=== PATIENT | female | born 1990 | race Caucasian/White ===

== ENCOUNTER 2016-12-01 07:57 | Inpatient (IN) | payer OTHER ==
[2016-12-01] MEDS ORDERED: Buffered Lidocaine 1% SYR 3ML* 3 ML/SYR SYRINGE INTRADERM PRN (08:03)
[2016-12-01] MEDS ORDERED: Oxytocin in LR* 20 UNITS/1,000 ML BAG IVPB SCH ×2 (09:00→19:00)
[2016-12-01 09:11] LABS: Hematocrit 35 % (35-47); Hemoglobin 11.4 g/dl (12.0-16.0); Mean Corpuscular HGB Conc 33 g/dl (31-36); Mean Corpuscular Hemoglobin 27 pg (27-31); Mean Corpuscular Volume 81 fL (80-97); Mean Platelet Volume 8 um3 (7.4-10.4); Red Blood Count 4.26 10^6/ul (4.0-5.4); Red Cell Distribution Width 15 % (10.5-15); White Blood Count 10.2 10^3/ul (3.5-10.8)
[2016-12-01] MEDS ORDERED: OBEPIDURAL* 250 ML ONE (14:51)
[2016-12-01] MEDS ORDERED: Acetaminophen TAB* 325 MG PO ONE (16:25)
[2016-12-01] MEDS ORDERED: Acetaminophen TAB* 325 MG ONE (16:35)
[2016-12-01] MEDS ORDERED: Dibucaine 1% 28.35 GM TUBE PR PRN (18:07)
[2016-12-01] MEDS ORDERED: Glycerin ADULT SUPP PR PRN (18:07)
[2016-12-01] MEDS ORDERED: Measles, Mumps,Rubella VACC* 0.5 ML/VIAL SUBCUT ONE (18:07)
[2016-12-01] MEDS ORDERED: Witch Hazel PAD* JAR TOPICAL PRN (18:07)
[2016-12-01] MEDS ORDERED: oxyCODONE/Acetamin 5/325 MG* TAB PO PRN (18:07)
[2016-12-01] MEDS ORDERED: Misoprostol TAB* 200 MCG PR ONE (18:07)
[2016-12-01] MEDS ORDERED: Acetaminophen TAB* 325 MG PO PRN (18:07)
[2016-12-01] MEDS: Ibuprofen TAB* 600 MG PO PRN (18:23)
[2016-12-01] MEDS ORDERED: Lidocaine 1% MPF* 2 ML VIAL ONE (18:39)
[2016-12-01] MEDS ORDERED: Misoprostol TAB* 200 MCG ONE (18:39)
[2016-12-01] MEDS ORDERED: Simethicone TAB* 80 MG TAB.CHEW PO SCH (21:00)
[2016-12-02 01:10] LABS: Add Diff/Slide Review? Slide Review Added; Comments Flag Yes
[2016-12-02] MEDS: Ibuprofen TAB* 600 MG PO PRN ×4 (01:55→19:56)
[2016-12-02 07:09] LABS: Hematocrit 26 % (35-47); Hemoglobin 8.5 g/dl (12.0-16.0); Mean Corpuscular HGB Conc 32 g/dl (31-36); Mean Corpuscular Hemoglobin 26 pg (27-31); Mean Corpuscular Volume 82 fL (80-97); Mean Platelet Volume 8 um3 (7.4-10.4); Red Blood Count 3.22 10^6/ul (4.0-5.4); Red Cell Distribution Width 15 % (10.5-15); White Blood Count 13.4 10^3/ul (3.5-10.8)
[2016-12-02] MEDS: Docusate CAP* 100 MG PO SCH ×3 (07:59→19:56)
[2016-12-02] MEDS: Ferrous Gluconate TAB* 324 MG TAB PO SCH ×2 (07:59→19:56)
[2016-12-03] MEDS: Ibuprofen TAB* 600 MG PO PRN ×2 (02:23→08:40)
[2016-12-03] MEDS: Ferrous Gluconate TAB* 324 MG TAB PO SCH (08:40)
[2016-12-03] MEDS: Docusate CAP* 100 MG PO SCH (08:40)
[2016-12-03 08:55] VITALS: BP 130/75
== END 2016-12-03 10:50 | disposition home or self-care (01) | DRG 560 ==
LOC: MCHOBOUT 07:57 → MCHOB 08:03
PROVIDERS: ADMIT Midwife; ATTEND Nurse Practitioner
PROC: 10907ZC Drainage of Amniotic Fluid, Therapeutic from Products of Conception, Via Natural or Artificial Opening (ICD-10-PCS; principal; 2016-12-01)
PROC: 10E0XZZ Delivery of Products of Conception, External Approach (ICD-10-PCS; 2016-12-01)
PROC: 4A1HXCZ Monitoring of Products of Conception, Cardiac Rate, External Approach (ICD-10-PCS; 2016-12-01)
PROC: 3E033VJ Introduction of Other Hormone into Peripheral Vein, Percutaneous Approach (ICD-10-PCS; 2016-12-01)
DX: O69.81X0 Labor and delivery complicated by cord around neck, without compression, not applicable or unspecified (principal); O72.1 Other immediate postpartum hemorrhage; Z3A.39 39 weeks gestation of pregnancy; Z37.0 Single live birth; O71.82 Other specified trauma to perineum and vulva; O90.81 Anemia of the puerperium; O75.89 Other specified complications of labor and delivery; R51 Headache
CPT/HCPCS: 36415; 85025; 85027; 86850; 86900; 86901; 90707; A9270-GY

== ENCOUNTER 2019-08-07 20:06 | Emergency (ER) | payer SELFPAY ==
[2019-08-07 20:52] LABS: Urine Appearance Turbid; Urine Bacteria 1+ (Absent); Urine Bilirubin Negative (Negative); Urine Blood 2+ (Negative); Urine Color Yellow; Urine Glucose Negative (Negative); Urine Ketones Trace (Negative); Urine Nitrite Negative (Negative); Urine Protein 3+(>=500 mg/dL) (Negative); Urine Red Blood Cell 3+(>10/hpf) (Absent); Urine Specific Gravity 1.023 (1.010-1.030); Urine Squamous Epithelial Cell Present (Absent); Urine Urobilinogen Negative (Negative); Urine White Blood Cell 3+(>20/hpf) (Absent)
[2019-08-07] MEDS ORDERED: Sulfamethox/Trimethoprim DS 800/160* TAB PO ONE ×2 (20:55→22:53)
--- NOTE | 2019-08-07 21:03 | ED ---
Back Pain - HPI Summary HPI Summary: Patient complains of bilateral flank pain, lower bilateral abdominal pain,, nausea and vomiting 1, pain with urination all starting yesterday. Denies fever, cough, sore throat, CP, SOB, vaginal symptoms. History of kidney stones. Denies other medical history. Abdominal surgical history is none. - History of Current Complaint Chief Complaint: EDFlankPain Stated Complaint: BACK PAIN PER PT Time Seen by Provider: 08/07/19 20:53 Hx Obtained From: Patient Onset/Duration: Lasting Days Onset/Duration: Started Days Ago Timing: Intermittent Back Pain Location: Is Discrete @ Severity Initially: Severe Severity Currently: Severe Pain Intensity: 8 Pain Scale Used: 0-10 Numeric Character: Dull, Aching, Throbbing Aggravating Symptom(s): Movement, Lifting, Bending Alleviating Symptom(s): Rest, Position Associated Signs And Symptoms: Positive: Abdominal Pain, Flank Pain - Allergies/Home Medications Allergies/Adverse Reactions: Allergies Allergy/AdvReac Type Severity Reaction Status Date / Time No Known Allergies Allergy Verified 08/07/19 20:09 PMH/Surg Hx/FS Hx/Imm Hx Endocrine/Hematology History: Denies: Hx Anticoagulant Therapy Cardiovascular History: Denies: Hx Pacemaker/ICD History: Reports: Hx Kidney Stones, Other Problems/Disorders - kindney stones and migraines Musculoskeletal History: Denies: Hx Gout Sensory History: Denies: Hx Eye Prosthesis Opthamlomology History: Denies: Hx Legally Blind Neurological History: Reports: Hx Migraine Psychiatric History: Reports: Hx Depression Infectious Disease History: No Infectious Disease History: Denies: Traveled Outside the [place] in Last 30 Days - Family History Known Family History: Positive: None, Cardiac Disease - FATHER (SMOKED) - Social History Alcohol Use: Occasionally Hx Substance Use: No Substance Use Type: Reports: None Hx Tobacco Use: No Smoking Status (MU): Never Smoked Tobacco Have You Smoked in the Last Year: No Review of Systems Constitutional: Negative Eyes: Negative ENT: Negative Cardiovascular: Negative Respiratory: Negative Positive: Abdominal Pain, Nausea Positive: flank pain Musculoskeletal: Negative Skin: Negative Neurological: Negative Psychological: Normal All Other Systems Reviewed And Are Negative: Yes Physical Exam - Summary Physical Exam Summary: Abdomen soft nontender. No ecchymosis, erythema, deformity, swelling noted to lower back. Tenderness along the paraspinal muscles of the lumbar spine bilaterally. PMS intact distally in bilateral lower extremities. Triage Information Reviewed: Yes Vital Signs On Initial Exam: Initial Vitals Temp Pulse Resp BP Pulse Ox 98.6 F 72 15 147/91 100 08/07/19 20:08 08/07/19 20:08 08/07/19 20:08 08/07/19 20:08 08/07/19 20:08 Vital Signs Reviewed: Yes Appearance: Positive: Well-Appearing Skin: Positive: Warm Head/Face: Positive: Normal Head/Face Inspection Eyes: Positive: Normal Neck: Positive: Supple Respiratory/Lung Sounds: Positive: Clear to Auscultation Cardiovascular: Positive: Normal Abdomen Description: Positive: Nontender Musculoskeletal: Positive: Normal Neurological: Positive: Normal Psychiatric: Positive: Normal AVPU Assessment: Alert - [place] Coma Scale Best Eye Response: 4 - Spontaneous Best Motor Response: 6 - Obeys Commands Best Verbal Response: 5 - Oriented Coma Scale Total: 15 Procedures - Sedation Patient Received Moderate/Deep Sedation with Procedure: No Diagnostics - Vital Signs Vital Signs Temp Pulse Resp BP Pulse Ox 08/07/19 20:08 98.6 F 72 15 147/91 100 - Laboratory Lab Results: Lab Results 08/07/19 Range/Units 20:33 Urine Color Yellow Urine Appearance Turbid Urine pH 7.0 (5-9) Ur Specific [place] 1.023 (1.010-1.030) Urine Protein 3+(>=500 mg/dl) A (Negative) Urine Ketones Trace A (Negative) Urine Blood 2+ A (Negative) Urine Nitrate Negative (Negative) Urine Bilirubin Negative (Negative) Urine Urobilinogen Negative (Negative) Ur Leukocyte Esterase 3+ A (Negative) Urine WBC (Auto) 3+(>20/hpf) A (Absent) Urine RBC (Auto) 3+(>10/hpf) A (Absent) Ur Squamous Epith Cells Present A (Absent) Urine Bacteria 1+ A (Absent) Urine Glucose Negative (Negative) Result Diagrams: 08/07/19 21:46 08/07/19 21:46 Lab Statement: Any lab studies that have been ordered have been reviewed, and results considered in the medical decision making process. Back Pain Course/Dx - Course Course Of Treatment: Patient complains of bilateral flank pain, lower bilateral abdominal pain,, nausea and vomiting 1, pain with urination all starting yesterday. Denies fever, cough, sore throat, CP, SOB, vaginal symptoms. History of kidney stones. Denies other medical history. Abdominal surgical history is none. Vital signs within normal limits. Labs unremarkable. UA positive for UTI. Rx for Bactrim. - Diagnoses Provider Diagnoses: UTI (urinary tract infection) Discharge ED - Sign-Out/Discharge Documenting (check all that apply): Patient Departure - Discharge Plan Condition: Stable Disposition: HOME Prescriptions: Sulfamethox/Trimethoprim DS* [Bactrim DS 800/160 TAB*] 1 tab PO BID 10 Days #20 tab Patient Education Materials: Urinary Tract Infection in Women (ED) Referrals: No Primary Care Phys,NOPCP [Primary Care Provider] - Additional Instructions: Take antibiotics as directed. Ibuprofen or Tylenol for pain. Return to the ED for any new or worsening symptoms. - Billing Disposition and Condition Condition: STABLE Disposition: Home - Attestation Statements Provider Attestation: I was available for consult. This patient was seen by the BENSON. The patient was not presented to, seen by, or examined by me. Mendez Lawson MD
[2019-08-07] MEDS ORDERED: Ondansetron INJ* 2 MG/ML VIAL IV ONE (21:35)
[2019-08-07] MEDS ORDERED: Ketorolac INJ* 30 MG/ML 1 ML VIAL IV ONE (21:35)
[2019-08-07] MEDS ORDERED: NS 0.9% 1000 ML** 1,000 ML IV ONE (21:35)
[2019-08-07 22:01] LABS: ABS Eosinophils 0.2 10^3/ul (0-0.6); ABS Lymphocytes 2.1 10^3/ul (1.0-4.8); ABS Monocytes 0.7 10^3/ul (0-0.8); ABS Neutrophils 7.8 10^3/ul (1.5-7.7); Eosinophil % 1.7 %; Hematocrit 39 % (35-47); Hemoglobin 13.1 g/dL (12.0-16.0); Lymphocyte % 19.3 %; Mean Corpuscular HGB Conc 34 g/dL (31-36); Mean Corpuscular Hemoglobin 31 pg (27-31); Mean Corpuscular Volume 93 fL (80-97); Mean Platelet Volume 7.5 fL (7.4-10.4); Platelet Count 287 10^3/uL (150-450); Red Cell Distribution Width 14 % (10-15); White Blood Count 10.8 10^3/uL (3.5-10.8)
[2019-08-07 22:11] LABS: ALT 9 U/L (7-52); AST 11 U/L (13-39); Albumin/Globulin Ratio 1.7 (1-3); Alkaline Phosphatase 51 U/L (34-104); Anion Gap 5 mmol/L (2-11); BUN/Creatinine Ratio 16.8 (8-20); Blood Urea Nitrogen 18 mg/dL (6-24); C Reactive Protein 13.13 mg/L (<8.01); CO2 Carbon Dioxide 29 mmol/L (22-32); Calcium 9.1 mg/dL (8.6-10.3); Chloride 104 mmol/L (101-111); EGFR African American 73.4 (>60); EGFR Non-African American 60.6 (>60); Globulin 2.4 g/dL (2-4); Glucose 89 mg/dL (70-100); Potassium 3.6 mmol/L (3.5-5.0); Sodium 138 mmol/L (135-145); Total Protein 6.4 g/dL (6.4-8.9)
[2019-08-07 22:17] LABS: HCG Pregnancy < 0.60 mIU/mL
[2019-08-07 23:20] VITALS: BP 124/78
== END 2019-08-07 23:19 | disposition home or self-care (01) ==
LOC: ED 20:06
DX: N39.0 Urinary tract infection, site not specified (principal); N20.0 Calculus of kidney
CPT/HCPCS: 36415; 76775; 80053; 81003; 81015; 84702; 85025; 86140; 87077; 87086; 96361; 96374; 96375; 99283; A9270-GY; J1885; J2405

== ENCOUNTER 2021-06-02 09:58 | Inpatient (IN) ==
[~2021-06-02 09:58] MED LIST: Buffered Lidocaine 1% SYRIN 1 ml INTRADERM ONE; Sodium Citrate/Citric Acid LIQ 15 ML UDC PO ONE
[2021-06-02] MEDS: Lactated Ringers 1000 ml BAG 1,000 ML IV SCH ×2 (10:30→15:54)
[2021-06-02] MEDS ORDERED: Buffered Lidocaine 1% SYRIN 1 ml INTRADERM ONE (12:01)
[2021-06-02] MEDS ORDERED: ceFOXitin 2 GM IVPREMIX 2 GM/50 ML BAG IVPB ONE (12:01)
[2021-06-02 13:18] LABS: Urine Benzodiazepine Screen None Detected (None Detect); Urine Cannabinoids Screen None Detected (None Detect); Urine Opiates Screen None Detected (None Detect)
[2021-06-02] MEDS ORDERED: Ondansetron 4 mg VIAL 2 MG/ML 2 ml VIAL ONE (15:46)
[2021-06-02] MEDS ORDERED: Oxytocin 10 UNITS/ML 1 ML VIAL ONE (15:46)
[2021-06-02] MEDS ORDERED: Morphine PF AMP (0.5MG/ML) 5 MG/10 ML AMP ONE (15:46)
[2021-06-02] MEDS ORDERED: Dexamethasone IV 4 MG/ML VIAL 1 ml VIAL ONE (15:46)
[2021-06-02] MEDS ORDERED: Phenylephrine 40 mcg/mL 10mL (400mcg) SYRINGE ONE (16:35)
[2021-06-02] MEDS ORDERED: EPHEDrine (Pressors) 50 MG/ML VIAL ONE (16:39)
[2021-06-02] MEDS ORDERED: Naloxone 0.4 mg VIAL 0.4 mg/ml 1 ml VIAL IV PRN ×2 (17:01→17:47)
[2021-06-02] MEDS ORDERED: diPHENhydraMINE IV 50 MG/ML 1 ml VIAL (BENADRYL) IV PRN ×2 (17:01→17:47)
[2021-06-02] MEDS ORDERED: Prochlorperazine 5 mg/ml 2 ml VIAL (10 mg) IV PRN (17:01)
[2021-06-02] MEDS ORDERED: Acetaminophen IV 1 GM/100ML 100 ML IV ONE (17:01)
[2021-06-02] MEDS ORDERED: fentaNYL 100 mcg/2 ml 50 MCG/ML VIAL IV PRN (17:01)
[2021-06-02] MEDS ORDERED: fentaNYL 100 mcg/2 ml 50 MCG/ML VIAL ONE (17:04)
[2021-06-02] MEDS ORDERED: Scopolamine PATCH Remove NOTE PATCH OFF PRN (17:47)
[2021-06-02] MEDS ORDERED: Ondansetron 4 mg VIAL 2 MG/ML 2 ml VIAL IV PRN (17:47)
[2021-06-02] MEDS ORDERED: Glycerin ADULT 2.4 gm SUPP PR PRN (19:33)
[2021-06-02] MEDS ORDERED: Dibucaine 1% OINT 28.35 GM TUBE PR PRN (19:33)
[2021-06-02] MEDS ORDERED: Witch Hazel PAD JAR TOPICAL PRN (19:33)
[2021-06-02] MEDS ORDERED: Lactated Ringers 1000 ml BAG 1,000 ML IV SCH (20:00)
[2021-06-02] MEDS ORDERED: Oxytocin in LR 20 UNITS/1,000 ML BAG IVPB SCH (20:00)
[2021-06-03 06:40] LABS: ABS Lymphocytes 1.2 10^3/ul (1.0-4.8); ABS Monocytes 0.6 10^3/ul (0-0.8); ABS Neutrophils 9.9 10^3/ul (1.5-7.7); Hematocrit 31 % (35-47); Hemoglobin 10.5 g/dL (12.0-16.0); Mean Corpuscular HGB Conc 34 g/dL (31-36); Mean Corpuscular Hemoglobin 31 pg (27-31); Mean Corpuscular Volume 91 fL (80-97); Mean Platelet Volume 8.2 fL (7.4-10.4); Platelet Count 222 10^3/uL (150-450); Red Blood Count 3.37 10^6 /uL (3.70-4.87); Red Cell Distribution Width 13 % (10-15); White Blood Count 11.7 10^3/uL (3.5-10.8)
[2021-06-03] MEDS ORDERED: Tetan/Diph/Pertus SYR(Tdap) 0.5 ML SYR(BOOSTRIX) use SYR contains LATEX IM ONE (14:51)
[2021-06-05] MEDS ORDERED: Tetan/Diph/Pertus SYR(Tdap) 0.5 ML SYR(BOOSTRIX) use SYR contains LATEX IM ONE (09:11)
[2021-06-05 12:45] VITALS: BP 133/68
[2021-06-05] MEDS ORDERED: Scopolamine PATCH Remove NOTE PATCH OFF ONE (17:02)
== END 2021-06-05 12:42 | disposition home or self-care (01) | DRG 540 ==
LOC: MCHOB 09:58
PROVIDERS: ADMIT Obstetrics & Gynecology; ATTEND Obstetrics & Gynecology